=== PATIENT | male | born 1985 | race Caucasian/White ===

== ENCOUNTER 2017-08-02 23:08 | Emergency (ER) | payer BC ==
--- NOTE | 2017-08-02 23:35 | ERPHSYRPT ---
- History of Present Illness Time Seen by Provider: 08/02/17 23:28 Source: patient, family Exam Limitations: no limitations Patient Subjective Stated Complaint: Pt arrives to ER with c/o left lower back pain that began Tuesday night "while doing nothing". Pt does not recall injury. Pt also c/o pain in left tesitcle that began this morning also without injury. Denies hx of hernia. Denies fever, dysuria, penile discharge, hematuria or any other sx. Triage Nursing Assessment: see above Physician History: The patient is a 32-year-old male with his complaining of left-sided low back pain since Tuesday. Tonight he had some left testicular pain in addition to the left-sided low back pain. Currently he does not have any testicular pain. He denies having problems with urination. He does not recall injuring his back. He denies trauma. His past medical history is significant for abdominal surgery as a child, hypospadias reconstruction. He denies kidney stones. Tonight he also denies nausea or vomiting. Timing/Duration: day(s) (3), gradual onset Severity: moderate Modifying Factors: Improves With: movement, ibuprofen Associated Symptoms: denies symptoms Allergies/Adverse Reactions: No Known Drug Allergies Allergy (Unverified 08/02/17 23:25) - Review of Systems Constitutional: No Fever, No Chills Eyes: No Symptoms Ears, Nose, & Throat: No Symptoms Respiratory: No Cough, No Dyspnea Cardiac: No Chest Pain, No Edema, No Syncope Abdominal/Gastrointestinal: No Abdominal Pain, No Nausea, No Vomiting, No Diarrhea Genitourinary Symptoms: Testicle Pain (left) Musculoskeletal: Back Pain Skin: No Rash Neurological: No Dizziness, No Focal Weakness, No Sensory Changes Psychological: No Symptoms Endocrine: No Symptoms Hematologic/Lymphatic: No Symptoms Immunological/Allergic: No Symptoms All Other Systems: Reviewed and Negative - Past Medical History Pertinent Past Medical History: No - Past Surgical History Past Surgical History: Yes Male Surgical History: Other Other Surgical History: hypospadia as an and vessel surgery involving kidneys. - Social History Smoking Status: Never smoker Exposure to second hand smoke: No Drug Use: none Patient Lives Alone: No - Nursing Vital Signs Nursing Vital Signs: Initial Vital Signs Temperature 98.9 F 08/02/17 23:15 Pulse Rate 61 08/02/17 23:15 Respiratory Rate 18 08/02/17 23:15 Blood Pressure 161/82 08/02/17 23:15 O2 Sat by Pulse Oximetry 98 08/02/17 23:15 Pain Scale Pain Intensity 7 - Physical Exam General Appearance: no apparent distress, alert Eye Exam: PERRL/EOMI, eyes nml inspection Ears, Nose, Throat Exam: normal ENT inspection, TMs normal, pharynx normal, moist mucous membranes Neck Exam: normal inspection, non-tender, supple, full range of motion Respiratory Exam: normal breath sounds, lungs clear, No respiratory distress Cardiovascular Exam: regular rate/rhythm, normal heart sounds, normal peripheral pulses Gastrointestinal/Abdomen Exam: soft, normal bowel sounds, No tenderness, No mass Male Genitalia Exam: No testicular tenderness (no tenderness of left testicle.) Rectal Exam: not done Back Exam: normal inspection, normal range of motion, No CVA tenderness, No vertebral tenderness Extremity Exam: normal inspection, normal range of motion, pelvis stable Neurologic Exam: alert, oriented x 3, cooperative, normal mood/affect, nml cerebellar function, nml station & gait, sensation nml, No motor deficits Skin Exam: normal color, warm, dry, No rash Lymphatic Exam: No adenopathy SpO2 Interpretation: normal SpO2: 98 Oxygen Delivery: Room Air - CT Exams Abdomen/Pelvis CT Interpretation: Negative (per Dr Will.), Tele-radiologist Report Ordered Tests: Active Orders 24 hr Category Date Time Status Clean Catch Urine Specimen STAT Care 08/02/17 23:44 Active IV Insertion STAT Care 08/02/17 23:44 Active ABDOMEN AND PELVIS W/0 CONTRAS [CT] Stat Exams 08/02/17 23:45 Taken CBC W DIFF Stat Lab 08/02/17 23:30 Completed CMP Stat Lab 08/02/17 23:30 Completed LIPASE Stat Lab 08/02/17 23:30 Completed UA W/RFX UR CULTURE Stat Lab 08/02/17 23:50 Completed Urine Triage Profile Stat Lab 08/02/17 23:50 Completed Medication Summary Discontinued Medications Generic Name Dose Route Start Last Admin Trade Name Freq PRN Reason Stop Dose Admin Sodium Chloride 1,000 mls @ 999 mls/hr 08/02/17 23:44 08/03/17 01:38 Sodium Chloride 0.9% 1000 Ml IV 08/03/17 00:44 Infused .Q1H1M STA Infusion Sodium Chloride Confirm 08/02/17 23:53 Sodium Chloride 0.9% 1000 Ml Administered 08/02/17 23:54 Dose 1,000 mls @ ud .ROUTE .[facility] Ketorolac Tromethamine 30 mg 08/02/17 23:44 08/02/17 23:57 Toradol 30 Mg Injection IV 08/02/17 23:45 30 mg STAT ONE Administration Ketorolac Tromethamine Confirm 08/02/17 23:53 Toradol 30 Mg Injection Administered 08/02/17 23:54 Dose 30 mg .ROUTE .[facility] Lab/Rad Data: Laboratory Result Diagrams 08/02/17 23:30 08/02/17 23:30 Laboratory Results 08/02/17 08/02/17 08/02/17 Range/Units 23:50 23:50 23:30 WBC (4.0-10.5) K/mm3 RBC (4.1-5.6) M/mm3 Hgb (12.5-18.0) gm/dl Hct (42-50) % MCV (78-100) fl MCH (26-32) pg MCHC (32-36) g/dl RDW (11.5-14.0) % Plt Count (150-450) K/mm3 MPV (6-9.5) fl Gran % (36.0-66.0) % Eos # (Auto) (0-0.5) Absolute Lymphs (auto) (1.0-4.6) Absolute Monos (auto) (0.0-1.3) Lymphocytes % (24.0-44.0) % Monocytes % (0.0-12.0) % Eosinophils % (0.00-5.0) % Basophils % (0.0-0.4) % Absolute Granulocytes (1.4-6.9) Basophils # (0-0.4) Sodium 140 (137-145) mmol/L Potassium 3.5 (3.5-5.1) mmol/L Chloride 104 (98-107) mmol/L Carbon Dioxide 29 (22-30) mmol/L Anion Gap 11.0 (5-15) MEQ/L BUN 15 (9-20) mg/dL Creatinine 0.85 (0.66-1.25) mg/dL Estimated GFR > 60.0 ML/MIN Glucose 103 (74-106) mg/dL Calcium 8.8 (8.4-10.2) mg/dL Total Bilirubin 0.30 (0.2-1.3) mg/dL AST 22 (17-59) U/L ALT 19 (0-50) U/L Alkaline Phosphatase 112 (38-126) U/L Serum Total Protein 7.5 (6.3-8.2) g/dL Albumin 4.2 (3.5-5.0) g/dL Lipase 80 (23-300) U/L Ur Collection Type CCMS Urine Color COLORLESS (YELLOW) Urine Appearance CLEAR (CLEAR) Urine pH 7.0 (5-6) Ur Specific [place] 1.005 (1.005-1.025) Urine Protein NEGATIVE (Negative) Urine Ketones NEGATIVE (NEGATIVE) Urine Blood NEGATIVE (0-5) Nick/ul Urine Nitrite NEGATIVE (NEGATIVE) Urine Bilirubin NEGATIVE (NEGATIVE) Urine Urobilinogen NORMAL (0-1) mg/dL Ur Leukocyte Esterase NEGATIVE (NEGATIVE) Urine Culture Reflexed NO (NO) Urine Glucose NEGATIVE (NEGATIVE) mg/dL Urine Opiates Level NEGATIVE (NEGATIVE) Ur Methadone NEGATIVE (NEGATIVE) Urine Barbiturates NEGATIVE (NEGATIVE) Ur Phencyclidine (PCP) NEGATIVE (NEGATIVE) Urine Amphetamine NEGATIVE (NEGATIVE) U Benzodiazepine Level NEGATIVE (NEGATIVE) Urine Cocaine NEGATIVE (NEGATIVE) Urine Marijuana (THC) NEGATIVE (NEGATIVE) Specimen Received 08-03-17 0010 08/02/17 Range/Units 23:30 WBC 5.5 (4.0-10.5) K/mm3 RBC 5.30 (4.1-5.6) M/mm3 Hgb 15.4 (12.5-18.0) gm/dl Hct 44.9 (42-50) % MCV 84.7 (78-100) fl MCH 29.1 (26-32) pg MCHC 34.3 (32-36) g/dl RDW 14.0 (11.5-14.0) % Plt Count 180 (150-450) K/mm3 MPV 9.5 (6-9.5) fl Gran % 53.1 (36.0-66.0) % Eos # (Auto) 0.09 (0-0.5) Absolute Lymphs (auto) 1.69 (1.0-4.6) Absolute Monos (auto) 0.78 (0.0-1.3) Lymphocytes % 30.7 (24.0-44.0) % Monocytes % 14.2 H (0.0-12.0) % Eosinophils % 1.6 (0.00-5.0) % Basophils % 0.4 (0.0-0.4) % Absolute Granulocytes 2.93 (1.4-6.9) Basophils # 0.02 (0-0.4) Sodium (137-145) mmol/L Potassium (3.5-5.1) mmol/L Chloride (98-107) mmol/L Carbon Dioxide (22-30) mmol/L Anion Gap (5-15) MEQ/L BUN (9-20) mg/dL Creatinine (0.66-1.25) mg/dL Estimated GFR ML/MIN Glucose (74-106) mg/dL Calcium (8.4-10.2) mg/dL Total Bilirubin (0.2-1.3) mg/dL AST (17-59) U/L ALT (0-50) U/L Alkaline Phosphatase (38-126) U/L Serum Total Protein (6.3-8.2) g/dL Albumin (3.5-5.0) g/dL Lipase (23-300) U/L Ur Collection Type Urine Color (YELLOW) Urine Appearance (CLEAR) Urine pH (5-6) Ur Specific [place] (1.005-1.025) Urine Protein (Negative) Urine Ketones (NEGATIVE) Urine Blood (0-5) Nick/ul Urine Nitrite (NEGATIVE) Urine Bilirubin (NEGATIVE) Urine Urobilinogen (0-1) mg/dL Ur Leukocyte Esterase (NEGATIVE) Urine Culture Reflexed (NO) Urine Glucose (NEGATIVE) mg/dL Urine Opiates Level (NEGATIVE) Ur Methadone (NEGATIVE) Urine Barbiturates (NEGATIVE) Ur Phencyclidine (PCP) (NEGATIVE) Urine Amphetamine (NEGATIVE) U Benzodiazepine Level (NEGATIVE) Urine Cocaine (NEGATIVE) Urine Marijuana (THC) (NEGATIVE) Specimen Received - Progress Progress: improved Counseled pt/family regarding: lab results, diagnosis, rad results - Departure Time of Disposition: 01:54 Departure Disposition: Home Clinical Impression: Back pain Condition: Stable Critical Care Time: No Referrals: SREEKANTH ATKINSON MD [Primary Care Provider] - Additional Instructions: You have back pain. Your laboratory results were negative. The CT scan of the abdomen and pelvis was negative. You were given Toradol 30 mg and fluids by IV in the ER. Take Flexeril 5 mg every 8 hours as needed. Follow-up as needed. Prescriptions: Cyclobenzaprine HCl [Flexeril] 5 mg PO Q8H PRN PRN #10 tablet PRN Reason: Pain
[2017-08-02] MEDS ORDERED: TORAdol 30 mg Injection IV ONE (23:44)
[2017-08-02] MEDS ORDERED: Sodium Chloride 0.9% 1000 ML 1,000 ML IV STA (23:44)
[2017-08-02] MEDS ORDERED: Sodium Chloride 0.9% 1000 ML 1,000 ML ONE (23:53)
[2017-08-02] MEDS ORDERED: TORAdol 30 mg Injection ONE (23:53)
[2017-08-02 23:57] LABS: ALBUMIN 4.2 g/dL (3.5-5.0); ALKALINE PHOSPHATASE 112 U/L (38-126); BASOPHIL % 0.4 % (0.0-0.4); BLOOD UREA NITROGEN 15 mg/dL (9-20); Basophil (Absolute #) 0.02 (0-0.4); CHLORIDE 104 mmol/L (98-107); Calcium 8.8 mg/dL (8.4-10.2); Carbon Dioxide 29 mmol/L (22-30); Creatinine 1 0.85 mg/dL (0.66-1.25); Eosinophil % 1.6 % (0.00-5.0); Eosinophil (Absolute #) 0.09 (0-0.5); Glucose 103 mg/dL (74-106); Granulocyte Absolute (ANC) 2.93 (1.4-6.9); Granulocytes % 53.1 % (36.0-66.0); Hematocrit 44.9 % (42-50); Hemoglobin 15.4 gm/dl (12.5-18.0); LIPASE 80 U/L (23-300); Lymphocyte (Absolute #) 1.69 (1.0-4.6); Lymphocytes % 30.7 % (24.0-44.0); Mean Cell Volume 84.7 fl (78-100); Mean Corpuscular Hemoglobin 29.1 pg (26-32); Mean Corpuscular Hgb Concent. 34.3 g/dl (32-36); Mean Platelet Volume 9.5 fl (6-9.5); Monocyte (Absolute #) 0.78 (0.0-1.3); Monocytes % 14.2 % (0.0-12.0); Platelet Count 180 K/mm3 (150-450); Potassium 3.5 mmol/L (3.5-5.1); SGOT/AST 22 U/L (17-59); SGPT/ALT 19 U/L (0-50); SODIUM 140 mmol/L (137-145); Total Protein 7.5 g/dL (6.3-8.2); White Blood Count 5.5 K/mm3 (4.0-10.5)
[2017-08-03 00:12] LABS: Appearance CLEAR (CLEAR); Bilirubin NEGATIVE (NEGATIVE); Blood NEGATIVE Ery/ul (0-5); Glucose NEGATIVE (NEGATIVE); Ketones NEGATIVE (NEGATIVE); Leukocyte Esterase NEGATIVE (NEGATIVE); Nitrite NEGATIVE (NEGATIVE); Protein,Urine Dip NEGATIVE (Negative); Specific Gravity 1.005 (1.005-1.025); Urobilinogen NORMAL mg/dL (0-1)
[2017-08-03 00:24] LABS: Amphetamine,Urine NEGATIVE (NEGATIVE); Barbiturate,Urine NEGATIVE (NEGATIVE); Benzodiazepine,Urine NEGATIVE (NEGATIVE); Cocaine,Urine NEGATIVE (NEGATIVE); Methadone,Urine NEGATIVE (NEGATIVE); Opiate,Urine NEGATIVE (NEGATIVE); PCP,Urine NEGATIVE (NEGATIVE); THC,Urine NEGATIVE (NEGATIVE)
[2017-08-03 02:06] VITALS: BP 136/80; PULSE 80; O2SAT 100
--- NOTE | 2017-08-03 10:46 | XRAY ---
Exam: CT of the abdomen and pelvis without IV contrast. CTDI: 14.80 Comparison: None. Indication: 32-year-old male with left flank pain, left lower back pain, left testicular pain, denies fever, dysuria, hematuria, or penile discharge. History of hypospadias reconstruction surgery as an . Technique: Non-IV contrast axial images were obtained through the abdomen and pelvis. Reconstructed coronal and sagittal images were created and reviewed. Findings: The lung bases appear clear. Assessment of the solid organs is somewhat limited without the use of IV contrast. With this limitation in mind, I see no definite abnormality of the liver. The gallbladder is partially distended and reveals no dense calcifications within it. The spleen, pancreas, and adrenal glands appear unremarkable. The kidneys are of unremarkable size and shape. No renal calculi or hydronephrosis is seen. The ureters are of unremarkable diameter throughout their course and reveal no ureteroliths. The urinary bladder is distended and reveals no calcifications within it. No urinary bladder wall thickening is seen. The seminal vesicles and prostate gland appear unremarkable. The abdominal aorta appears of normal diameter. No abdominal aortic aneurysm or abnormal retroperitoneal lymphadenopathy is seen. A tiny amount of intraperitoneal fat protrudes into the subcutaneous fat at the level of the umbilicus. No bowel containing ventral hernia is seen. The bowel appears normal diameter and reveals no definite bowel wall thickening. I note a few scattered high attenuation densities throughout the colon as well as perhaps the proximal appendix. These may represent enteroliths or be the product of medication or something the patient has eaten. I see no inflammatory changes to suggest appendicitis. Scattered stool is seen within the colon. No enlarged pelvic lymph nodes or free intraperitoneal fluid is seen. A calcified phlebolith is seen within the lower right hemipelvis. The skeleton reveals no acute fracture or aggressive bone lesion. Impression: 1. I see no renal/ureteral calculi or evidence of hydronephrosis/obstructive uropathy, particularly on the left. No urinary bladder calculi are seen. 2. No other acute process is seen within the abdomen or pelvis. The appendix appears unremarkable. 3. Some scattered punctate high attenuation densities are seen within the proximal appendix, ascending colon, and sigmoid colon. These may represent enteroliths, medication densities, or other ingested densities. For example, see axial image #37, #54, #60, and #61.
== END 2017-08-03 02:06 | disposition home or self-care (01) ==
LOC: ED 23:08
DX: M54.5 Low back pain (principal); N50.812 Left testicular pain; M54.9 Dorsalgia, unspecified
CPT/HCPCS: 36000; 36415; 74176; 80053; 80307; 81002; 83690; 85025; 96360; 96361; 96372; 99284; J1885

== ENCOUNTER 2018-02-27 22:30 | Emergency (ER) | payer BC ==
[2018-02-27] MEDS ORDERED: Pepcid 20 MG VIAL IV ONE ×2 (23:19→23:25)
[2018-02-27] MEDS ORDERED: Sodium Chloride 0.9% 1000 ML 1,000 ML IV STA (23:19)
[2018-02-27] MEDS ORDERED: Hydromorphone 1 mg/ml Ampule IV ONE (23:19)
[2018-02-27] MEDS ORDERED: Zofran 4 MG/2 ML VIAL IV ONE (23:19)
--- NOTE | 2018-02-27 23:19 | ERPHSYRPT ---
- History of Present Illness Time Seen by Provider: 02/27/18 23:00 Historian: patient, family Exam Limitations: no limitations Patient Subjective Stated Complaint: Abdominal pain Triage Nursing Assessment: Patient ambulated back to ED and transferred self to bed. Patient A+O X 3. Patient complains of abdominal pain in the middle of abdomen that is a constant shooting/stabbing pain /10. Patient states he has had diarrhea for past 2 days. Patient states he is having nausea. Abdomen soft and round with BS present X 4. Physician History: 32 y/o white male presents with 2 day h/o epigastric abd pain, nausea and diarrhea. no vomiting. no prior abd surgeries. on no meds. nkda. no other individuals with same sx. no other flu like sx Timing/Duration: day(s) (2) Activities at Onset: none Quality: sharpness, stabbing Abdominal Pain Onset Location: epigastric Severity of Pain-Max: moderate Severity of Pain-Current: mild Associated Symptoms: diarrhea, loss of appetite, nausea, No vomiting Previous symptoms: no prior history Allergies/Adverse Reactions: No Known Drug Allergies Allergy (Verified 02/27/18 22:49) Hx Tetanus, Diphtheria Vaccination/Date Given: Yes Hx Influenza Vaccination/Date Given: Yes Hx Pneumococcal Vaccination/Date Given: No Immunizations Up to Date: Yes - Review of Systems Constitutional: No Symptoms Eyes: No Symptoms Ears, Nose, & Throat: No Symptoms Respiratory: No Symptoms Cardiac: No Symptoms Abdominal/Gastrointestinal: Abdominal Pain, Nausea, Diarrhea, Appetite Changes, No Vomiting Genitourinary Symptoms: No Symptoms Musculoskeletal: No Symptoms Skin: No Symptoms Neurological: No Symptoms Psychological: No Symptoms Endocrine: No Symptoms Hematologic/Lymphatic: No Symptoms Immunological/Allergic: No Symptoms All Other Systems: Reviewed and Negative - Past Medical History Pertinent Past Medical History: No Neurological History: No Pertinent History ENT History: No Pertinent History Cardiac History: No Pertinent History Respiratory History: No Pertinent History Endocrine Medical History: No Pertinent History Musculoskeletal History: No Pertinent History GI Medical History: No Pertinent History History: No Pertinent History Psycho-Social History: No Pertinent History Male Reproductive Disorders: No Pertinent History - Past Surgical History Past Surgical History: Yes Neuro Surgical History: No Pertinent History Cardiac: No Pertinent History Respiratory: No Pertinent History Gastrointestinal: No Pertinent History Genitourinary: No Pertinent History Musculoskeletal: No Pertinent History Male Surgical History: Other Other Surgical History: hypospadia as an infant and vessel surgery involving kidneys. - Social History Smoking Status: Never smoker Exposure to second hand smoke: No Drug Use: none Patient Lives Alone: No - Nursing Vital Signs Nursing Vital Signs: Initial Vital Signs Temperature 98.8 F 02/27/18 22:40 Pulse Rate 65 02/27/18 22:40 Respiratory Rate 18 02/27/18 22:40 Blood Pressure 163/83 02/27/18 22:40 O2 Sat by Pulse Oximetry 100 02/27/18 22:40 Pain Scale Pain Intensity 5 - Physical Exam General Appearance: no apparent distress, alert, anxiety Eye Exam: PERRL/EOMI, eyes nml inspection Ears, Nose, Throat Exam: normal ENT inspection, moist mucous membranes Neck Exam: normal inspection, non-tender, supple, full range of motion Respiratory Exam: normal breath sounds, lungs clear, airway intact, No chest tenderness, No respiratory distress, No accessory muscle use, No rhonchi, No wheezing, No stridor Cardiovascular Exam: regular rate/rhythm, normal heart sounds, normal peripheral pulses Gastrointestinal/Abdomen Exam: soft, normal bowel sounds, tenderness (mild epigastric), guarding, No rebound Rectal Exam: not done Back Exam: normal inspection, normal range of motion, No CVA tenderness, No vertebral tenderness Extremity Exam: normal inspection, normal range of motion, pelvis stable Neurologic Exam: alert, oriented x 3, cooperative, ore dryer II-XII nml as tested Skin Exam: normal color, warm, dry Lymphatic Exam: No adenopathy SpO2 Interpretation: normal SpO2: 100 Oxygen Delivery: Room Air - Course Nursing assessment & vital signs reviewed: Yes Ordered Tests: Active Orders 24 hr Category Date Time Status Clean Catch Urine Specimen STAT Care 02/27/18 23:19 Active IV Insertion STAT Care 02/27/18 23:19 Active ABDOMEN AND PELVIS W/0 CONTRAS [CT] Stat Exams 02/27/18 23:19 Taken AMYLASE Stat Lab 02/27/18 23:00 Completed CBC W DIFF Stat Lab 02/27/18 23:00 Completed CMP Stat Lab 02/27/18 23:00 Completed CULTURE,URINE Stat Lab 02/27/18 23:00 Received LIPASE Stat Lab 02/27/18 23:00 Completed Lactic Acid Stat Lab 02/27/18 23:15 Completed Manual Differential NC Stat Lab 02/27/18 23:00 Completed UA W/RFX UR CULTURE Stat Lab 02/27/18 23:00 Completed Medication Summary Discontinued Medications Generic Name Dose Route Start Last Admin Trade Name Abdulkadir ROAN Reason Stop Dose Admin Famotidine 20 mg 02/27/18 23:19 02/27/18 23:28 Pepcid 20 Mg Vial IV 02/27/18 23:20 20 mg STAT ONE Administration Famotidine Confirm 02/27/18 23:25 Pepcid 20 Mg Vial Administered 02/27/18 23:26 Dose 20 mg IV .STK-MED ONE Hydromorphone HCl 1 mg 02/27/18 23:19 02/27/18 23:30 Hydromorphone 1 Mg/Ml Ampule IV 02/27/18 23:20 1 mg STAT ONE Administration Hydromorphone HCl Confirm 02/27/18 23:26 Hydromorphone 1 Mg/Ml Ampule Administered 02/27/18 23:27 Dose 1 mg .ROUTE .STK-MED ONE Sodium Chloride 1,000 mls @ 999 mls/hr 02/27/18 23:19 02/28/18 00:34 Sodium Chloride 0.9% 1000 Ml IV 02/28/18 00:19 Infused .Q1H1M STA Infusion Sodium Chloride Confirm 02/27/18 23:26 Sodium Chloride 0.9% 1000 Ml Administered 02/27/18 23:27 Dose 1,000 mls @ ud .ROUTE .STK-MED ONE Metronidazole 500 mg 02/28/18 01:20 Flagyl 500 Mg PO 02/28/18 01:21 STAT ONE Ondansetron HCl 4 mg 02/27/18 23:19 02/27/18 23:29 Zofran 4 Mg/2 Ml Vial IV 02/27/18 23:20 4 mg STAT ONE Administration Ondansetron HCl Confirm 02/27/18 23:25 Zofran 4 Mg/2 Ml Vial Administered 02/27/18 23:26 Dose 4 mg .ROUTE .STK-MED ONE Lab/Rad Data: Laboratory Result Diagrams 02/27/18 23:00 02/27/18 23:00 Laboratory Results 02/27/18 02/27/18 02/27/18 Range/Units 23:35 23:15 23:00 WBC (4.0-10.5) K/mm3 RBC (4.1-5.6) M/mm3 Hgb (12.5-18.0) gm/dl Hct (42-50) % MCV (78-100) fl MCH (26-32) pg MCHC (32-36) g/dl RDW (11.5-14.0) % Plt Count (150-450) K/mm3 MPV (6-9.5) fl Segmented Neutrophils (36.-66.) % Band Neutrophils (0.0-2.0) % Lymphocytes (Manual) (24-44) % Monocytes (Manual) (0.0-12.0) % Atypical Lymphocytes % Hypochromia Platelet Estimate (NORMAL) RBC Morphology Poikilocytosis Anisocytosis Sodium (137-145) mmol/L Potassium (3.5-5.1) mmol/L Chloride (98-107) mmol/L Carbon Dioxide (22-30) mmol/L Anion Gap (5-15) MEQ/L BUN (9-20) mg/dL Creatinine (0.66-1.25) mg/dL Estimated GFR ML/MIN Glucose (74-106) mg/dL Lactic Acid 0.8 (0.4-2.0) Calcium (8.4-10.2) mg/dL Total Bilirubin (0.2-1.3) mg/dL AST (17-59) U/L ALT (0-50) U/L Alkaline Phosphatase (38-126) U/L Serum Total Protein (6.3-8.2) g/dL Albumin (3.5-5.0) g/dL Amylase (30-110) U/L Lipase (23-300) U/L Urine Color YELLOW (YELLOW) Urine Appearance SLIGHTLY CLOUDY (CLEAR) Urine pH 5.0 (5-6) Ur Specific [place] 1.026 (1.005-1.025) Urine Protein NEGATIVE (Negative) Urine Ketones NEGATIVE (NEGATIVE) Urine Blood SMALL (0-5) Nick/ul Urine Nitrite NEGATIVE (NEGATIVE) Urine Bilirubin NEGATIVE (NEGATIVE) Urine Urobilinogen NEGATIVE (0-1) mg/dL Ur Leukocyte Esterase NEGATIVE (NEGATIVE) Urine WBC (Auto) 6-10 (0-5) /HPF Urine RBC (Auto) 6-10 (0-2) /HPF U Epithel Cells (Auto) RARE (FEW) /HPF Urine Bacteria (Auto) RARE (NEGATIVE) /HPF Urine Mucus (Auto) MANY (NEGATIVE) /HPF Urine Culture Reflexed YES (NO) Urine Glucose NEGATIVE (NEGATIVE) mg/dL Influenza Type A Ag NEGATIVE (NEGATIVE) Influenza Type B Ag NEGATIVE (NEGATIVE) RSV (PCR) NEGATIVE (Negative) 02/27/18 02/27/18 Range/Units 23:00 23:00 WBC 6.0 (4.0-10.5) K/mm3 RBC 5.40 (4.1-5.6) M/mm3 Hgb 14.6 (12.5-18.0) gm/dl Hct 44.1 (42-50) % MCV 81.7 (78-100) fl MCH 27.0 (26-32) pg MCHC 33.1 (32-36) g/dl RDW 15.0 H (11.5-14.0) % Plt Count 185 (150-450) K/mm3 MPV 8.7 (6-9.5) fl Segmented Neutrophils 50 (36.-66.) % Band Neutrophils 9 H (0.0-2.0) % Lymphocytes (Manual) 37 (24-44) % Monocytes (Manual) 3 (0.0-12.0) % Atypical Lymphocytes 1 % Hypochromia 1+ Platelet Estimate NORMAL (NORMAL) RBC Morphology ABNORMAL Poikilocytosis 2+ Anisocytosis 2+ Sodium 139 (137-145) mmol/L Potassium 3.4 L (3.5-5.1) mmol/L Chloride 100 (98-107) mmol/L Carbon Dioxide 29 (22-30) mmol/L Anion Gap 13.2 (5-15) MEQ/L BUN 13 (9-20) mg/dL Creatinine 1.10 (0.66-1.25) mg/dL Estimated GFR > 60.0 ML/MIN Glucose 100 (74-106) mg/dL Lactic Acid (0.4-2.0) Calcium 9.0 (8.4-10.2) mg/dL Total Bilirubin 0.50 (0.2-1.3) mg/dL AST 27 (17-59) U/L ALT 25 (0-50) U/L Alkaline Phosphatase 137 H (38-126) U/L Serum Total Protein 7.6 (6.3-8.2) g/dL Albumin 4.3 (3.5-5.0) g/dL Amylase 69 (30-110) U/L Lipase 53 (23-300) U/L Urine Color (YELLOW) Urine Appearance (CLEAR) Urine pH (5-6) Ur Specific [place] (1.005-1.025) Urine Protein (Negative) Urine Ketones (NEGATIVE) Urine Blood (0-5) Nick/ul Urine Nitrite (NEGATIVE) Urine Bilirubin (NEGATIVE) Urine Urobilinogen (0-1) mg/dL Ur Leukocyte Esterase (NEGATIVE) Urine WBC (Auto) (0-5) /HPF Urine RBC (Auto) (0-2) /HPF U Epithel Cells (Auto) (FEW) /HPF Urine Bacteria (Auto) (NEGATIVE) /HPF Urine Mucus (Auto) (NEGATIVE) /HPF Urine Culture Reflexed (NO) Urine Glucose (NEGATIVE) mg/dL Influenza Type A Ag (NEGATIVE) Influenza Type B Ag (NEGATIVE) RSV (PCR) (Negative) - Progress Progress: improved, pain not gone completely, re-examined Progress Note: 02/28/18 01:23 ct scan abd/pelvis- no acute intracranial process Counseled pt/family regarding: lab results, diagnosis, need for follow-up, rad results - Departure Time of Disposition: 01:24 Departure Disposition: Home Clinical Impression: Colitis Condition: Stable Critical Care Time: No Referrals: SREEKANTH ATKINSON MD [Primary Care Provider] - Additional Instructions: drink plenty of fluids. follow up with primary doctor for persistent symptoms. return to ED if symptoms worsen Prescriptions: Ondansetron ODT 4 MG [Zofran Odt 4 mg] 4 mg PO Q6H PRN PRN #10 tab.rapdis PRN Reason: Nausea/Vomiting Metronidazole 500 mg [Flagyl 500 MG] 500 mg PO TID #21 tablet
[2018-02-27 23:24] VITALS: PULSE 69
[2018-02-27] MEDS ORDERED: Zofran 4 MG/2 ML VIAL ONE (23:25)
[2018-02-27 23:26] LABS: Hematocrit 44.1 % (42-50); Hemoglobin 14.6 gm/dl (12.5-18.0); Mean Cell Volume 81.7 fl (78-100); Mean Corpuscular Hgb Concent. 33.1 g/dl (32-36); Mean Platelet Volume 8.7 fl (6-9.5); Platelet Count 185 K/mm3 (150-450)
[2018-02-27] MEDS ORDERED: Hydromorphone 1 mg/ml Ampule ONE (23:26)
[2018-02-27] MEDS ORDERED: Sodium Chloride 0.9% 1000 ML 1,000 ML ONE (23:26)
[2018-02-27 23:37] LABS: Appearance SLIGHTLY CLOUDY (CLEAR); Bilirubin NEGATIVE (NEGATIVE); Blood SMALL Ery/ul (0-5); Glucose NEGATIVE (NEGATIVE); Ketones NEGATIVE (NEGATIVE); Leukocyte Esterase NEGATIVE (NEGATIVE); Nitrite NEGATIVE (NEGATIVE); Protein,Urine Dip NEGATIVE (Negative); Specific Gravity 1.026 (1.005-1.025); Urobilinogen NEGATIVE mg/dL (0-1)
[2018-02-27 23:51] LABS: ALBUMIN 4.3 g/dL (3.5-5.0); ALKALINE PHOSPHATASE 137 U/L (38-126); AMYLASE 69 U/L (30-110); ANION GAP 13.2 MEQ/L (5-15); BLOOD UREA NITROGEN 13 mg/dL (9-20); CHLORIDE 100 mmol/L (98-107); Carbon Dioxide 29 mmol/L (22-30); Glucose 100 mg/dL (74-106); LIPASE 53 U/L (23-300); Potassium 3.4 mmol/L (3.5-5.1); SGOT/AST 27 U/L (17-59); SGPT/ALT 25 U/L (0-50); SODIUM 139 mmol/L (137-145); Total Protein 7.6 g/dL (6.3-8.2)
[2018-02-28 00:10] LABS: ANISOCYTOSIS 2+; ATYPICAL LYMPHS 1 %; BAND 9 % (0.0-2.0); Lymphocytes 37 % (24-44); Monocyte 3 % (0.0-12.0); Neutrophils 50 % (36.-66.); Platelet Estimate NORMAL (NORMAL); Poikilocytosis 2+; Total Cells Counted 100
[2018-02-28 00:11] LABS: Hypochromia 1+
[2018-02-28 00:20] LABS: INFLUENZA A NEGATIVE (NEGATIVE); INFLUENZA B NEGATIVE (NEGATIVE); RESPIRATORY SYNCTIAL VIRUS NEGATIVE (Negative)
[2018-02-28 00:33] VITALS: BP 140/86
[2018-02-28] MEDS ORDERED: Flagyl 500 MG PO ONE (01:20)
[2018-02-28 01:27] VITALS: O2SAT 100
[2018-02-28] MEDS ORDERED: Flagyl 500 MG ONE (01:38)
--- NOTE | 2018-02-28 09:22 | XRAY ---
Indication: Epigastric pain with nausea and diarrhea. Multiple contiguous axial images obtained through the abdomen and pelvis without contrast as ordered. Comparison: August 03, 2017. Lung bases are clear. Heart is not enlarged. Noncontrasted stomach and bowel loops appear nonobstructed. Colon demonstrates intraluminal radiopacities presumed ingested medication, bismuth, or enteric contrast. Normal appendix. No free fluid/air. Remaining liver, gallbladder, pancreas, spleen, adrenal glands, kidneys, ureters, bladder, and aorta appear unremarkable for noncontrast exam. Osseous structures intact. No ventral or inguinal hernias. Impression: Again negative CT abdomen/pelvis without contrast exam. Comment: Preliminary interpretation was made by [id number]. No discrepancy. CTDI 22.63
== END 2018-02-28 02:11 | disposition home or self-care (01) ==
LOC: ED 22:30
DX: K52.9 Noninfective gastroenteritis and colitis, unspecified (principal); R10.13 Epigastric pain; R11.0 Nausea
CPT/HCPCS: 36000; 36415; 74176; 80053; 81001; 82150; 83605; 83690; 85025; 87086; 87631; 96360; 96374; 96375; 99284; J1170; J2405; A9270-GY